=== PATIENT | male | born 1955 | race Caucasian/White ===

== ENCOUNTER 2023-05-04 14:02 | Emergency (ER) | payer BC, MEDICAID ==
[~2023-05-04] VITALS: Ht 175.3 cm; Wt 81.6 kg
[2023-05-04] MEDS ORDERED: KETO10TA2 PO (17:07)
[2023-05-04] MEDS ORDERED: HYDR-4209 PO (17:07)
[2023-05-04] MEDS ORDERED: HYDROCODONE/APAP 5/325MG TABLET ONE (17:11)
[2023-05-04] MEDS: HYDROCODONE/APAP 5/325MG TABLET PO ONE (17:13)
[2023-05-04 17:39] VITALS: TEMP 98.1
[2023-05-04 19:40] VITALS: BP 132/80; O2SAT 99
== END 2023-05-04 17:47 | disposition home or self-care (01) ==
LOC: ER 14:06
DX: S92.351A Displaced fracture of fifth metatarsal bone, right foot, initial encounter for closed fracture (principal); I10 Essential (primary) hypertension; X58.XXXA Exposure to other specified factors, initial encounter; Y93.89 Activity, other specified; Y92.89 Other specified places as the place of occurrence of the external cause; Y99.8 Other external cause status
CPT/HCPCS: 73630-TC